=== PATIENT | female | born 1960 | race Caucasian/White ===

== ENCOUNTER 2016-12-08 09:53 | Emergency (ER) | payer BC ==
[~2016-12-08] VITALS: Ht 162.6 cm; Wt 68.2 kg
[2016-12-08] MEDS ORDERED: CYCLOBENZAPRINE 10 MG TAB PO ONE (11:15)
[2016-12-08] MEDS ORDERED: NORCO, ANEXSIA 5/325MG TABLET (HYDROcodone/ACETAMINOPHEN) PO ONE (11:15)
--- NOTE | 2016-12-08 12:05 | REP ---
Maxillofacial CT study without contrast: History: Injury in a fall. FINDINGS: There is a slightly depressed fracture of the nasal bone. Inferior maxillary spine appears intact. No other facial fracture is appreciated. Orbital margins are intact. There are mucosal changes affecting the maxillary sinuses bilaterally. No intraorbital lesion is seen. The deep facial soft tissues are unremarkable. No mandibular fracture is appreciated. Impression: Slightly depressed fracture of the nasal bone. Otherwise negative. Signed by Hermilo Mota MD 12/08/2016 12:59 P
--- NOTE | 2016-12-08 12:07 | REP ---
CT study of the cervical spine without contrast: History: Injury in a fall. Technique: Helical scanning is acquired and overlapping 2 mm high resolution axial images were generated and reviewed at bone and soft tissue window settings. Coronal and sagittal multiplanar re-formations images are generated. CT findings: There is a nondisplaced chip fracture at the anterior inferior margin of the C5 vertebral body. This is best appreciated on sagittal reformatted images. There is no other evidence of cervical spine element fracture. No skull base fracture is seen. Cervical vertebral body heights are preserved. There is some straightening of the normal cervical lordosis. There is bilateral uncovertebral spurring producing neural foraminal encroachment at C5-6 and on the right at C4-5 and to a lesser extent at C3-4. There is some left-sided C4-5 uncovertebral spurring as well. Alignment is normal. Facet joints are normally aligned bilaterally at each cervical level on multiplanar re-formations images. There is no evidence of intraspinal or paraspinal hematoma. No extra vertebral abnormality is seen. Degenerative disc changes are noted at C4-5, C5-6, and C6-7 with disc space narrowing and anterior and posterior osteophytic ridging at these levels. Impression: Chip fracture anterior inferior aspect C5 vertebral body. Degenerative spondylosis changes with multilevel neural foraminal narrowing. Otherwise negative CT study of the cervical spine without contrast. Signed by Hermilo Mota MD 12/08/2016 12:59 P
--- NOTE | 2016-12-08 15:07 | REP ---
MRI cervical spine without contrast: History: Injury in a fall. Fracture at C5. Bilateral hand tingling. Comparison CT study cervical spine is from December 08, 2016 showing an apparent chip fracture at the anterior inferior aspect of the C5 vertebral body. Technique: Sagittal and axial T1 and T2-weighted scans are acquired in the usual fashion with and without fat saturation. Sequences include spin echo, turbo spin-echo, and STIR imaging sequences. MRI findings: STIR T2-weighted fat sat imaging shows minimal marrow edema at the site of the anterior inferior C5 vertebral body chip fracture. There is prevertebral edema at this level and extending cranially and caudally, but no aleta paravertebral hematoma is seen. There is no evidence of posterior longitudinal or interlaminar ligament disruption. No other evidence of fracture. There are advanced degenerative spondylosis changes with reactive marrow changes at C4-5 and to a somewhat lesser extent C5-6 and C6-7. Axial and sagittal images at C4-5 demonstrate a broad-based disc protrusion at C4-5 effacing the ventral thecal sac and flattening the ventral margin of the cord. This produces mild to moderate central canal stenosis at C4-5. CSF signal is effaced circumferentially from the thecal sac at C4-5. Mid sagittal AP dimension of the thecal sac in the midline at this level is 6 mm. Bilateral uncovertebral spurring produces neural foraminal narrowing at C4-5. At C5-6, there is diffuse disc bulging and posterior osteophytic ridging. This effaces the ventral subarachnoid space and produces subtle flattening of the ventral margin of the cord. There is also mild to moderate central canal stenosis at C5-6. Mid sagittal AP dimension of the thecal sac at C5-6 is 6.5 mm. There is bilateral uncovertebral spurring at C5-6 producing neural foraminal narrowing. At C6-7, there is mild diffuse disc bulging. Canal size is borderline. There is bilateral C6-7 uncovertebral spurring, mild in degree. At C7-T1, there is no significant finding. Impression: Minimal marrow edema and prevertebral edema centered about the site of the C5 chip fracture. No other ligament disruption seen. Moderate sized broad-based C4-5 disc protrusion producing moderate central canal stenosis at C4-5. Mild central canal stenosis is seen at C5-6. There is uncovertebral spurring producing neural foraminal encroachment bilaterally at these two levels. Signed by Hermilo Mota MD 12/08/2016 05:03 P
[2016-12-08] MEDS ORDERED: NORCOTAB PO (15:39)
[2016-12-08] MEDS ORDERED: [UNRECOGNIZED DRUG - CODE] XX (15:42)
--- NOTE | 2016-12-08 16:00 | REP ---
RIGHT SHOULDER: Three views of the right shoulder are performed. There is no acute fracture or dislocation. The acromioclavicular joint is narrowed. IMPRESSION: No acute fracture or dislocation. Signed by Josh Santana MD 12/08/2016 04:36 P
[2016-12-08 16:11] VITALS: BP 138/91
[2016-12-30] MEDS ORDERED: IBUP200C10 PO (10:49)
== END 2016-12-08 16:11 | disposition home or self-care (01) ==
LOC: M ED 09:53
DX: S02.2XXA Fracture of nasal bones, initial encounter for closed fracture (principal); S12.400A Unspecified displaced fracture of fifth cervical vertebra, initial encounter for closed fracture; W01.0XXA Fall on same level from slipping, tripping and stumbling without subsequent striking against object, initial encounter; Y92.89 Other specified places as the place of occurrence of the external cause; Y93.89 Activity, other specified; Y99.8 Other external cause status; M25.511 Pain in right shoulder; Z88.0 Allergy status to penicillin

== ENCOUNTER → 2016-12-30 | Outpatient (CLI) | payer BC ==
[~2016-12-30] MED LIST: IBUP200C10 PO; NORCOTAB PO; [UNRECOGNIZED DRUG - CODE] XX
--- NOTE | 2017-01-01 00:39 | ECGEPIP ---
Stationary ECG Study [facility] Test Date: 2016-12-30 Pat Name: CECIL WAGNER Department: Room: - Gender: F Cattle Rancher: DIMITRY : 1960 Requested By: Andrew Harp Order Number: [id number] Reading MD: Gideon Hayes Measurements Intervals [place] Rate: 75 P: 17 MS: 140 QRS: -20 QRSD: 82 T: 40 QT: 353 QTc: 395 Interpretive Statements SINUS RHYTHM LOW QRS VOLTAGE IN PRECORDIAL LEADS No prior tracing in the system Electronically Signed On 01-01-2017 0:39:11 EST by Gideon Hayes
== END ==
LOC: M ADMPAT 10:24
PROVIDERS: ATTEND Orthopaedic Surgery
DX: M48.02 Spinal stenosis, cervical region (principal)

== ENCOUNTER 2017-01-12 12:43 | Inpatient (IN) | payer BC ==
--- NOTE | 2017-01-11 09:04 | HPE ---
DATE OF PLANNED ADMISSION: 01/12/2017 ATTENDING PHYSICIAN: Joo Black MD CHIEF COMPLAINT: Neck pain with numbness and tingling in the left upper extremity. HISTORY: The patient is a pleasant 56-year-old female who fell on a wet floor at the end of November. She feel forward broke her nose and ended up with an anterior chip of the C5 vertebral body. She did have numbness and tingling in the bilateral upper extremities, but now it is more localized to the left. She continues to have neck pain. She is unhappy with her current level of neck discomfort and the persistent numbness so she consented for an elective anterior cervical decompression and fusion with Dr. Black. CURRENT MEDICATIONS: - ibuprofen 200 mg every 8 hours as needed for neck pain (will stop 5 days prior to surgery) ALLERGIES: PENICILLIN. CHRONIC MEDICAL CONDITIONS: None. PREVIOUS SURGICAL HISTORY: Tonsillectomy and adenoidectomy. Left knee arthroscopy. SOCIAL HISTORY: The patient denies smoking and occasionally consumes alcohol. REVIEW OF SYSTEMS: The patient denies fever, chills, nausea, vomiting or diarrhea. She denies chest pain, shortness of breath, lightheadedness, headache, cough, or abdominal pain. She has neck pain since injury at the end of November 2016 with left-sided radicular symptoms. PHYSICAL EXAMINATION: NECK: Supple without lymphadenopathy. HEART: Regular rate and rhythm. LUNGS: Clear to auscultation bilaterally. ABDOMEN: Bowel sounds are present. Abdomen is soft and nontender to palpation. The patient does have tenderness along the neck. She does have a positive Freeman's on the left. Deltoid strength abduction is weakened on the left when compared to right. Deep tendon reflexes at the bicep is 1+ bilaterally. The triceps was 3 on the right and 1 on the left. Skin of the neck is intact. VITAL SIGNS: Blood pressure 120/70, heart rate 72, respirations 12, height 5 foot 5 inches, weight 150.4 pounds, temperature 99.2. IMAGING: The patient does have significant cervical spinal stenosis at multiple levels including C3, C4 where the AP diameter of the spinal canal is about 6.31 mm with mild flattening of the spinal cord. There is a small disc bulge at C5-6 with a congenitally narrow canal measuring about 8.9 mm. C6-7 measuring 7.3 mm. There is spondylosis at C4-5, C5-6 and C6-7. There is also a CT scan reflecting a small chip fracture on the anterior inferior aspect of the C3 vertebral body. IMPRESSION: Multilevel cervical degenerative spondylosis, myelopathy, likely secondary to stenosis at C4-5, combined with recent trauma. She does have a positive Freeman's reflex and inverted brachial radialis and slight hyperreflexia on the left. PLAN: The patient has consented for a three level cervical decompression and fusion procedure such as C4-5, C5-6 and C6-7. The patient appears to be medically optimized for surgery. BONITA
[~2017-01-12] VITALS: Ht 162.6 cm; Wt 68.0 kg
[2017-01-12] MEDS ORDERED: PERCOCET 5MG/325MG TAB PO ONE (13:00)
[2017-01-12] MEDS ORDERED: LR 1,000 ML IV ONE (13:00)
[2017-01-12] MEDS ORDERED: methylPREDNISolone 500 MG, VIAL MATE ADAPTER 1 EACH in D5W 250 ML IV ONE (13:00)
[2017-01-12] MEDS ORDERED: GABAPENTIN 300 MG CAP PO ONE (13:00)
[2017-01-12] MEDS ORDERED: BUPIVACAINE/EPIN 0.25% 30 ML VIAL As Ordered ONE (13:24)
[2017-01-12] MEDS ORDERED: methylPREDNISolone 500 MG VIAL (J2930) As Ordered ONE (13:24)
[2017-01-12] MEDS ORDERED: BACITRACIN PWD 50,000 UNITS VIAL As Ordered ONE (13:24)
[2017-01-12] MEDS ORDERED: THROMBIN SOLN 20,000 UNITS KIT As Ordered ONE (13:24)
[2017-01-12] MEDS ORDERED: LIDOCAINE W/EPINEPHRINE 1% 20ML VIAL As Ordered ONE (13:24)
[2017-01-12] MEDS ORDERED: MIDAZOLAM INJ 2 MG/2 ML VIAL (J2250) As Ordered ONE (15:41)
[2017-01-12] MEDS ORDERED: fentaNYL 250 MCG/5 ML INJECTION (J3010) As Ordered ONE (15:41)
[2017-01-12] MEDS ORDERED: PROPOFOL 200 MG/20 ML VIAL As Ordered ONE (15:43)
[2017-01-12] MEDS ORDERED: LABETALOL HCL 100 MG/20 ML VIAL As Ordered ONE (15:43)
[2017-01-12] MEDS ORDERED: METOCLOPRAMIDE INJ 10MG/2ML VIAL (J2765) As Ordered ONE (15:44)
[2017-01-12] MEDS ORDERED: ROCURONIUM BROMIDE 50 MG/5 ML VIAL As Ordered ONE (15:44)
[2017-01-12] MEDS ORDERED: ONDANSETRON 4MG/2ML VIAL (J2405) As Ordered ONE (15:44)
[2017-01-12] MEDS ORDERED: PHENYLephrine HCL 500 MCG/5 ML (100MCG/ML) SYRINGE (J2370) As Ordered ONE (15:44)
[2017-01-12] MEDS ORDERED: GLYCOPYRROLATE INJ 0.2 MG/ML 2 ML VIAL As Ordered ONE (15:44)
[2017-01-12] MEDS ORDERED: LIDOCAINE 2% INJ 100 MG/5 ML SDV (FOR ANES.) As Ordered ONE (15:44)
[2017-01-12] MEDS ORDERED: NEOSTIGMINE 10 MG/10 ML VIAL (J2710) As Ordered ONE (15:44)
[2017-01-12] MEDS ORDERED: HYDROmorphone HCL 2 MG/ML 1ML VIAL (J1170) As Ordered ONE (15:59)
[2017-01-12] MEDS ORDERED: DESFLURANE 240 ML INHALANT As Ordered ONE (17:03)
[2017-01-12] MEDS ORDERED: fentaNYL 100 MCG/2 ML INJECTION (J3010) As Ordered ONE (19:50)
[2017-01-12] MEDS ORDERED: ONDANSETRON 4MG/2ML VIAL (J2405) IV PRN (20:15)
[2017-01-12] MEDS ORDERED: fentaNYL 100 MCG/2 ML INJECTION (J3010) IV PRN (20:15)
[2017-01-12] MEDS ORDERED: LR 1,000 ML IV SCH (20:15)
[2017-01-12] MEDS ORDERED: PERCOCET 5MG/325MG TAB PO PRN ×2 (20:15→20:45)
[2017-01-12] MEDS ORDERED: PROMETHAZINE INJ 25 MG/ML VIAL (J2550) IV PRN (20:45)
[2017-01-12] MEDS ORDERED: HYDROmorphone HCL 1 MG/ML SYRINGE (J1170) IV PRN (20:45)
[2017-01-12 20:55] VITALS: BP 132/75
[2017-01-12 21:25] VITALS: BP 129/62
[2017-01-12 22:00] VITALS: BP 124/73
[2017-01-12] MEDS: GABAPENTIN 300 MG CAP PO SCH (22:41)
[2017-01-12 23:00] VITALS: BP 106/61
[2017-01-13] VITALS (7 sets, daily range): BP systolic 107–141; BP diastolic 64–83
[2017-01-13] MEDS: PERCOCET 5MG/325MG TAB PO PRN ×3 (05:23→20:38)
--- NOTE | 2017-01-13 08:36 | REP ---
CERVICAL SPINE, ONE VIEW: HISTORY: Spinal fusion. A single portable lateral radiograph was obtained. The cervical spine is visualized from C1 to the C5-6 level in the lateral radiograph. A metal probe is present overlying the C4-5 intervertebral disc. IMPRESSION: A metal probe is present overlying the C4-5 intervertebral disc. Signed by Ramiro Tafoya MD 01/13/2017 08:57 A
[2017-01-13] MEDS: METAMUCIL (PSYLLIUM) PACKET PO SCH (09:17)
[2017-01-13] MEDS: GABAPENTIN 300 MG CAP PO SCH ×2 (09:17→20:37)
[2017-01-14 04:00] VITALS: BP 119/77
[2017-01-14] MEDS: PERCOCET 5MG/325MG TAB PO PRN ×2 (04:28→08:34)
[2017-01-14 08:00] VITALS: BP 137/77
[2017-01-14] MEDS: METAMUCIL (PSYLLIUM) PACKET PO SCH (08:32)
[2017-01-14] MEDS: GABAPENTIN 300 MG CAP PO SCH (08:33)
--- NOTE | 2017-01-15 09:20 | RO ---
DATE OF PROCEDURE: 01/12/2017 PREOPERATIVE DIAGNOSIS: Cervical spinal stenosis with myelopathy and left upper extremity radicular pain. POSTOPERATIVE DIAGNOSIS: Cervical spinal stenosis with myelopathy and left upper extremity radicular pain. PROCEDURE PERFORMED: C4-5 anterior cervical decompression and fusion procedure for decompression of the thecal sac and exiting nerve roots as well as preparation of endplates for arthrodesis, C5-6 additional level, C6-7 additional level, application of cervical intervertebral biomechanical device at C4-5, application of intervertebral biomechanical device at C5-6 additional level, application of intervertebral biomechanical device at C6-7 additional level. Anterior cervical instrumentation, three segment, C4, C5, C6, C7, harvest and placement of local autograft for spine surgery. SURGEON: Dr. Joo Black FRUIT FARMER: Rico Domingo PA-C ANESTHESIA: General endotracheal. ESTIMATED BLOOD LOSS: Was 15 mL, replaced with Crystalloid. COMPLICATIONS: None. INDICATIONS: 56-year-old woman with cervical myelopathy, which was appreciated after she slipped on a wet floor, with neurologic deficit, including pain and weakness in the left upper extremity primarily as well as hyperreflexia and initially bilateral upper extremity Lhermitte's sign. Consent reviewed in detail with the patient, including a aleta discussion of the pathology involved; the procedure proposed; alternatives including doing nothing or delay; risks including, but not limited to, pain, failure, infection, bleeding, blood loss, incomplete relief of symptoms, need for additional surgery, paralysis, hoarseness, swallowing trouble, other issues. The patient agrees to proceed with surgery. COMPONENTS USED: Include the four web intervertebral biomechanical titanium cage system, size 6 large times two and size 7 large times one lordotic, DePuy Grant 43 mm cervical plate and the appropriate screws, 15 mm at C7, rescue screw 14 mm at C6 times two, 14 mm times two at C5, 14 mm times two at C4. OPERATIVE COURSE: Identified in holding area. Site/side verified. Brought to the operating room. Anesthesia was administered. She was positioned for exposure of the cervical spine. Mr. Domingo and Charlene both participated in positioning and verification. Once Charlene and the hardboard factory worker were comfortable with the patient's positioning, she was then sterilely prepped and draped in the usual fashion. The approach was a right-sided approach to the anterior cervical spine. The incision was outlined by myself with a marking pen, infiltrated with 1% lidocaine with epinephrine, and made with a #10 blade knife, developed down through skin and subcuticular tissues to the platysma. Platysma was elevated and divided using tenotomy scissors as well as bipolar cautery. Large branch of the external jugular vein was encountered just deep to the platysma and medial to the sternocleidomastoid. This was ligated doubly and divided to allow exposure. Dissection continued medial to the sternocleidomastoid. I encountered the omohyoid muscle, which was elevated and divided using the bipolar cautery and tenotomy scissors. Dissection continued. The carotid sheath was identified. The prevertebral fascia was elevated, exposing the C5-6 level and C4-5 level. I placed a bayonet spinal needle at the C4-5 level, and we obtained a cross-table lateral x-ray to verify our levels. Once this was accomplished, Mr. Lewisdeion assisted in retraction with the S retractors, retracting the medial structures medially, exposing the longus colli bilaterally at C4-5. Longus colli was elevated bilaterally at its medial aspect using the monopolar cautery set on 20. It was elevated from C4-5 through C6-7. This allowed placement of the cervical retractor. We began at the C5-6 level. Distraction pins were placed across C5-6. Annulus was opened with a #11 blade. Disc material and annular material was removed using pituitaries followed by curved curette removing cartilaginous endplate. I next used the oval ashley to further contour the vertebral body endplates. I debrided the uncinate processes, and bone graft was retained from the uncinate processes for later use in the intervertebral biomechanical device. It was mixed with demineralized bone matrix putty. I further prepared the endplate using rasps followed by a sound. I predicted a size 7 lordotic cage would be the appropriate fit. That cage was obtained, packed with the bone graft material mixed with demineralized bone matrix putty, and it was implanted at C5-6. We then subluxed the retractor down to the C6-7 level and placed another distraction pin at C7 and distracted the C6-7 disc space. The annulus there was opened with a #11 blade, and the discectomy endplate preparation and harvesting of local autograft was accomplished in a similar fashion. Please also note that at the C5-6 level, I did remove the posterior longitudinal ligament using #1 and #2 Kerrisons, exposing the thecal sac directly. At C6-7, again the posterior longitudinal ligament was elevated using a curette, removed using #1 and #2 Kerrisons, exposing the thecal sac. The cage at C6-7 was measured for a size 6 lordotic. This was obtained, again packed with the local autograft mixed with demineralized bone matrix putty, and implanted, tamped into place. The inferior distraction pin and the C6 distraction pin were then removed. The holes were plugged with wax, and the retractor was then moved to the C4-5 level. At C4-5, she had a large osteophyte that was removed using Leks[place]. Distraction pin was placed in C4 and C5. The superior pin at C5 was left in place. We distracted across C4-5. Again, the disc material was removed using pituitaries. Endplates were prepared, removing cartilaginous endplate with curved curette, and oval ashley was utilized to further prepare and contour the endplate and, again, uncinate process was debrided and bone graft retained for use in the cage. We sized for a size 6 lordotic cage at the C4-5 level. This was packed with bone graft material mixed with demineralized bone matrix putty. The posterior longitudinal ligament was again elevated and removed using #1 and 2 Kerrisons, exposing the thecal sac and verifying the decompression. The cage was then tamped into place. I then inspected the anterior vertebral bodies, and they were further contoured using the oval ashley to receive the plate. Next, I selected a size 43 mm plate. It was applied to the anterior vertebral bodies, and the plate was placed by drilling and placing the appropriate screws. At the C6 level, the patient seemed to be at that level somewhat osteoporotic and I did place 14 mm rescue screws at C6. At C7, the depth of the vertebral body with very adequate and I placed 15 mm screws at C7. We placed 14 mm screws at C5 and C4 bilaterally. The screws were locked into place using the locking device. Next, irrigation was accomplished. The remaining demineralized bone matrix putty was injected into the visualization ports in the plate. Irrigation was accomplished. We inspected for bleeding. There was no bleeding appreciable. All Gelfoam was removed at the conclusion of the case. All counts were correct. We obtained a cross-table lateral x-ray to verify cage and plate placement. Next, irrigation again accomplished, including with concentrated bacitracin. Platysma was reapproximated with interrupted stitch, deep dermis with interrupted stitch, Dermabond utilized on skin. Patient was placed in a cervical collar, extubated, and moved to the hospital bed in good condition. At the conclusion of the case, she was appreciated to be moving all four extremities and, in fact, voiced relief of her left upper extremity discomfort. Mr. Domingo was present and participated in the entirety of the case in capacity of engineer first assistant. For further details, please refer to the medical record.
== END 2017-01-14 11:07 | disposition home or self-care (01) | DRG 321 ==
LOC: M OR 12:43 → M PED 21:00
PROVIDERS: ADMIT Orthopaedic Surgery; ATTEND Orthopaedic Surgery
PROC: 0RB30ZZ Excision of Cervical Vertebral Disc, Open Approach (ICD-10-PCS; 2017-01-12)
PROC: 0RG20A0 Fusion of 2 or more Cervical Vertebral Joints with Interbody Fusion Device, Anterior Approach, Anterior Column, Open Approach (ICD-10-PCS; principal; 2017-01-12 14:45)
DX: M48.02 Spinal stenosis, cervical region (principal); M47.12 Other spondylosis with myelopathy, cervical region; M47.22 Other spondylosis with radiculopathy, cervical region; Z88.0 Allergy status to penicillin

== ENCOUNTER → 2017-03-19 | Outpatient (CLI) | payer BC | LOC: M LRY 12:37 | DX: J98.6 Disorders of diaphragm (principal); Z98.1 Arthrodesis status | CPT/HCPCS: 71046 ==

== ENCOUNTER 2017-04-07 07:02 | Day surgery (SDC) | payer BC ==
[2017-04-07] MEDS ORDERED: PROPOFOL 200 MG/20 ML VIAL As Ordered ×2 (07:08→08:14)
[2017-04-07] MEDS ORDERED: LIDOCAINE 2% INJ 100 MG/5 ML SDV (FOR ANES.) As Ordered (07:10)
[2017-04-07] MEDS ORDERED: NS 1,000 ML IV (07:45)
== END 2017-04-07 08:55 | disposition home or self-care (01) ==
LOC: M OPP 07:02
DX: Z12.11 Encounter for screening for malignant neoplasm of colon (principal); D12.4 Benign neoplasm of descending colon; D12.3 Benign neoplasm of transverse colon; K58.9 Irritable bowel syndrome, unspecified; Z79.899 Other long term (current) drug therapy; Z88.0 Allergy status to penicillin; Z78.0 Asymptomatic menopausal state
CPT/HCPCS: 45385

== ENCOUNTER → 2017-04-08 | Outpatient (CLI) | payer BC | LOC: M WHC 13:14 | DX: Z12.31 Encounter for screening mammogram for malignant neoplasm of breast (principal); Z78.0 Asymptomatic menopausal state; Z79.3 Long term (current) use of hormonal contraceptives | CPT/HCPCS: 77067 ==

== ENCOUNTER → 2017-04-08 | Outpatient (REF) | payer BC ==
[2017-04-14 08:07] LABS: HPV HYBRID CAPTURE II Negative (Negative)
== END ==
LOC: M SFHCWAGY 13:32
DX: Z12.4 Encounter for screening for malignant neoplasm of cervix (principal)
CPT/HCPCS: G0123

== ENCOUNTER → 2018-08-18 | Outpatient (CLI) | payer BC ==
[~2018-08-18] MED LIST changes: +ALL10TAB28 PO; +CALC1TAB26 PO; +HYDR-3715 PO; -IBUP200C10 PO; +IBUP200C25 PO; +NAPR-885 PO; -NORCOTAB PO; +TYLETAB14 PO
--- NOTE | 2018-08-18 11:18 | REPMRS ---
Patient History The patient states she has not had a clinical breast exam in over a year. No known family history of cancer. Took hormonal contraceptives for 20 years. 3D TOMOSYNTHESIS WAS PERFORMED. [facility] [address] lifetime risk for breast cancer is 9.7%. Digital Woman Screen Mammo: August 18, 2018 - Exam #: [id number] Bilateral CC and MLO view(s) were taken. Technologist: Evita Sharma, Technologist Prior study comparison: April 08, 2017, digital woman screen mammo performed at [facility]. February 02, 2011, bilateral digital woman screen mammo performed at [facility]. FINDINGS: There are scattered fibroglandular densities. There has been no change in the appearance of the mammogram from the prior studies. There is a mild amount of residual fibroglandular tissue which is fairly symmetric. There is no interval development of dominant mass, architectural distortion, or clustered microcalcification suggestive of malignancy. Assessment: BI-RADS/ACR category 1 mammogram. Negative Mammogram. Recommendation Routine screening mammogram in 1 year (for women over age 40). This mammogram was interpreted with the aid of an FDA-approved computer-aided dectection system. Electronically Signed By: Josh Santana MD 08/18/18 [id number]
== END ==
LOC: M WHC 09:54
PROVIDERS: ATTEND Family Medicine
DX: Z12.31 Encounter for screening mammogram for malignant neoplasm of breast (principal); Z92.0 Personal history of contraception

== ENCOUNTER → 2019-01-04 | Outpatient (REF) | payer BC ==
[~2019-01-04] MED LIST changes: -ALL10TAB28 PO; +ALL10TAB29 PO
== END ==
LOC: M SFHCLERA 13:45
PROVIDERS: ATTEND Physician Assistant
DX: R30.0 Dysuria (principal)

== ENCOUNTER → 2020-08-29 | Outpatient (REF) | payer BC, OTHER ==
[~2020-08-29] MED LIST changes: -ALL10TAB29 PO; +CETI-24 PO
== END ==
LOC: M LAB REF 13:47
PROVIDERS: ATTEND Dermatology
DX: L72.0 Epidermal cyst (principal)

== ENCOUNTER → 2020-09-17 | Outpatient (CLI) | payer BC, OTHER | LOC: M LABSMTC 09:29 | PROVIDERS: ATTEND Anesthesiology | DX: Z01.812 Encounter for preprocedural laboratory examination (principal); Z20.822 Contact with and (suspected) exposure to COVID-19 ==

== ENCOUNTER → 2021-01-08 | Outpatient (CLI) | payer BC, OTHER ==
--- NOTE | 2021-01-08 16:16 | REPMRS ---
Patient History The patient states she had a clinical breast exam in December 2020. No known family history of cancer. Took hormonal contraceptives for 20 years. Tomosynthesis is performed. Volpara breast density is b[facility] Patient states no breast complaints today. Patient has signed MRS History Sheet. Digital Woman Screen Mammo: January 08, 2021 - Exam #: [id number] Bilateral CC and MLO view(s) were taken. Technologist: Gloria Mclaughlin Technologist Prior study comparison: August 18, 2018, bilateral digital woman screen mammo performed at [facility]. April 08, 2017, digital woman screen mammo performed at [facility]. FINDINGS: There are scattered fibroglandular densities. There has been no change in the appearance of the mammogram from the prior studies. There is a mild amount of residual fibroglandular tissue which is fairly symmetric. There is no interval development of dominant mass, architectural distortion, or clustered microcalcification suggestive of malignancy. Assessment: BI-RADS/ACR category 1 mammogram. Negative Mammogram. Recommendation Routine screening mammogram in 1 year (for women over age 40). This mammogram was interpreted with the aid of an FDA-approved computer-aided dectection system. Electronically Signed By: Josh Santana MD 01/08/21 [id number]
== END ==
LOC: M WHC 13:55
PROVIDERS: ATTEND Nurse Practitioner Women's Health
DX: Z12.31 Encounter for screening mammogram for malignant neoplasm of breast (principal)

== ENCOUNTER → 2021-01-08 | Outpatient (REF) | payer BC, OTHER | LOC: M SFHCWAGY 17:21 | PROVIDERS: ATTEND Nurse Practitioner Women's Health | DX: Z12.4 Encounter for screening for malignant neoplasm of cervix (principal); Z01.419 Encounter for gynecological examination (general) (routine) without abnormal findings ==

== ENCOUNTER → 2021-04-03 | Outpatient (CLI) | payer BC, OTHER | LOC: M LABSMTC 11:08 | PROVIDERS: ATTEND Anesthesiology | DX: Z01.818 Encounter for other preprocedural examination (principal); Z11.52 Encounter for screening for COVID-19 ==

== ENCOUNTER 2021-04-08 08:30 | Day surgery (SDC) | payer BC ==
[~2021-04-08] VITALS: Ht 162.6 cm; Wt 72.1 kg
[~2021-04-08 08:30] MED LIST changes: +NS 1,000 ML IV ONE
[2021-04-08] MEDS ORDERED: propofoL 200 MG/20 ML VIAL As Ordered ONE (10:42)
[2021-04-08] MEDS ORDERED: LIDOCAINE 2% INJ 100 MG/5 ML SYRINGE As Ordered ONE (10:42)
[2021-04-08 11:01] VITALS: BP 120/80
== END 2021-04-08 11:03 | disposition home or self-care (01) ==
LOC: M OPP 08:30
PROVIDERS: ATTEND Internal Medicine Gastroenterology
DX: Z12.11 Encounter for screening for malignant neoplasm of colon (principal); Z86.010 Personal history of colon polyps; Z83.79 Family history of other diseases of the digestive system; K64.8 Other hemorrhoids

== ENCOUNTER → 2022-06-16 | Outpatient (CLI) | payer BC ==
[~2022-06-16] MED LIST changes: -NS 1,000 ML IV ONE
== END ==
LOC: M WHC 15:04
PROVIDERS: ATTEND Nurse Practitioner Family
DX: Z12.31 Encounter for screening mammogram for malignant neoplasm of breast (principal)

== ENCOUNTER → 2022-06-16 | Outpatient (REF) | payer BC | LOC: M SFHCWAGY 10:39 | PROVIDERS: ATTEND Nurse Practitioner Family | DX: Z12.4 Encounter for screening for malignant neoplasm of cervix (principal) ==

== ENCOUNTER → 2023-11-18 | Outpatient (CLI) | payer BC | LOC: M WHC 14:49 | PROVIDERS: ATTEND Nurse Practitioner Family | DX: Z12.31 Encounter for screening mammogram for malignant neoplasm of breast (principal) ==

== ENCOUNTER → 2025-01-11 | Outpatient (CLI) | payer BC | LOC: M WHC 12:53 | PROVIDERS: ATTEND Physician Assistant | DX: Z12.31 Encounter for screening mammogram for malignant neoplasm of breast (principal); R92.313 Mammographic fatty tissue density, bilateral breasts | CPT/HCPCS: 77063; 77067; 87624; G0123 ==

== ENCOUNTER → 2025-01-11 | Outpatient (REF) | payer BC ==
[2025-01-17 13:12] LABS: HPV APTIMA Detected (Not Detected)
== END ==
LOC: M SFHCWAGY 17:07
PROVIDERS: ATTEND Physician Assistant
DX: Z12.4 Encounter for screening for malignant neoplasm of cervix (principal)
CPT/HCPCS: 87624; G0123